=== PATIENT | female | born 1985 ===

== ENCOUNTER 2018-11-01 15:37 | Inpatient (IN) | payer MEDICAID ==
--- NOTE | 2018-11-01 15:42 | Emergency Department Report ---
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 This is a 32-year-old female. The patient is not known to this provider pr eviously. The patient is brought to the hospital by emergency medical services as a possible code stroke. Patient presents to the emergency room today with a complaint of headache, chest pain, and left arm weakness and numbness. The headache is is frontal and bitemporal. It started a few hours ago. It is not sudden or thunderclap in nature. It did not which maximal intensity within an hour. It is not reportedly the most intense headache of her life. It is similar to prior headaches. The chest pain is central and left-sided. Does not rate the back, arms or neck. There is positive nausea and vomiting. There is no diaphoresis. There is no reported exertional shortness of breath. The patient denies DVT, pulmonary embolus risk factors, with the exception of poor baseline mobility. Patient is not sure about when her left arm "weakness" started. It may have started a few days ago, last Thursday. She is not certain. She did state to ER staff that it was present for 4 days, and then resolved. She did not receive any definitive imaging at this time. She also endorses nonspecific facial numbness. Patient not able to describe exacerbating or relieving factors that she is aware of. -: Gradual Location: left face, left arm History of same: Yes Place: home Severity: moderate Quality: other Improves With: other Worsens With: other On Anticoagulants: No Context: other - Related Data Allergies/Adverse Reactions: Allergies Allergy/AdvReac Type Severity Reaction Status Date / Time ciprofloxacin [From Cipro] Allergy Rash Verified 11/01/18 15:40 duloxetine [From Cymbalta] Allergy Rash Verified 11/01/18 15:40 metoclopramide [From Reglan] Allergy Rash Verified 11/01/18 15:40 prochlorperazine Allergy Rash Verified 11/01/18 15:40 [From Compazine] sulfamethoxazole Allergy Rash Verified 11/01/18 15:40 [From Septra] trimethoprim [From Septra] Allergy Rash Verified 11/01/18 15:40 ED Review of Systems ROS: Stated complaint: POSSIBLE STROKE Other details as noted in HPI Constitutional: malaise Eyes: denies: eye discharge ENT: denies: epistaxis Respiratory: denies: cough Cardiovascular: chest pain Gastrointestinal: nausea, vomiting Genitourinary: hematuria (for months) Musculoskeletal: back pain (for months) Skin: denies: rash Neurological: headache, weakness Psychiatric: anxiety ED Neuro Physical Exam - General Limitations: Language Barrier General appearance: alert, anxious, obese Suspected Stroke: No - Head Head exam: Present: atraumatic, normocephalic - Eye Eye exam: Present: normal appearance, EOMI. Absent: nystagmus - ENT ENT exam: Present: normal exam, normal orophraynx, mucous membranes moist, normal external ear exam - Neck Neck exam: Present: normal inspection, full ROM. Absent: tenderness, meningismus - Respiratory Respiratory exam: Present: normal lung sounds bilaterally. Absent: respiratory distress - Cardiovascular Cardiovascular Exam: Present: normal rhythm, tachycardia, normal heart sounds. Absent: systolic murmur, diastolic murmur, rubs, gallop - GI/Abdominal GI/Abdominal exam: Present: soft, normal bowel sounds. Absent: distended, tenderness, guarding, rebound, rigid - Extremities Exam Extremities exam: Present: normal inspection, other (2+ pulses noted in the b ilateral upper extremities. There is no long bony tenderness. Compartments soft. There is no palpable cord.). Absent: tenderness, calf tenderness - Back Exam Back exam: Present: normal inspection, full ROM. Absent: tenderness, CVA tenderness (R), CVA tenderness (L), paraspinal tenderness, vertebral tenderness - Neurological Exam Neurological exam: Present: alert, oriented X3, motor sensory deficit (chest noted in the right lower extremity. Hemiparetic and left lower extremity.), other (there is no facial droop. The tongue is midline. Extraocular movements are intact bilaterally. Patient endorses decreased sensation to light touch left sided V1, V2, V3 distribution. His grossly intact. Phonation is normal and intact.) - NIHSS Assessment Interval: Baseline 1a. Level of Consciousness: alert/keenly responsive 1b. LOC Questions: answers both correctly 1c. LOC Commands: performs tasks correctly 2. Best Gaze: normal 3. Visual: no visual loss 4. Facial Palsy: normal symmetrical movement 5b. Motor Arm Right: no drift 5a. Motor Arm Left: drift 6a. Motor Leg Left: no gravity effort 6b. Motor Leg Right: drift 7. Limb Ataxia: absent 8. Sensory: normal 9. Best Language: no aphasia 10. Dysarthria: normal 11. Extinction/Inattention: no abnormality Total Score: 5 Stroke Severity: Moderate Stroke - Psychiatric Psychiatric exam: Present: anxious - Skin Skin exam: Present: warm, dry, intact, normal color. Absent: rash ED Course Vital Signs 11/01/18 11/01/18 11/01/18 16:00 16:15 16:18 Temperature 98.3 F Pulse Rate 117 H 113 H 117 H Respiratory 12 11 L 13 Rate Blood Pressure 128/86 122/83 128/86 O2 Sat by Pulse 97 96 93 Oximetry 11/01/18 11/01/18 11/01/18 16:30 16:45 17:00 Temperature Pulse Rate 115 H Respiratory 10 L 11 L 10 L Rate Blood Pressure 140/77 130/85 126/91 O2 Sat by Pulse 96 Oximetry 11/01/18 11/01/18 11/01/18 17:15 17:30 17:45 Temperature Pulse Rate 113 H 105 H 110 H Respiratory 18 28 H 13 Rate Blood Pressure 116/97 114/68 115/70 O2 Sat by Pulse 97 Oximetry 11/01/18 11/01/18 11/01/18 18:00 18:15 18:30 Temperature Pulse Rate 101 H 94 H 90 Respiratory 11 L 10 L 10 L Rate Blood Pressure 125/71 97/49 107/49 O2 Sat by Pulse 96 95 94 Oximetry - Reevaluation(s) Reevaluation #1: 11/01/18 17:28 Differential diagnosis, including but not limited to: Transient ischemic attack, subacute stroke, complex migraine, cluster headache, tension headache, GERD, gastritis, pneumonia, pulmonary embolism, radicular pain, conversion disorder, malingering, fibromyalgia Assessment and plan: 32-year-old female with multiple complaints. Complaint #1, acute on chronic headache, with nonspecific associated neurologic symptoms. Patient's last known well time is not explicitly known, as the patient is not able to tells exactly when her last well time's. She did state that a few days ago she had some left-sided facial numbness, and she reported t hat it resolved, she also endorses facial droop which has resolved, and she also endorsed intermittent left-sided arm symptoms. Given that her last known well time is not explicitly known, that she's been experiencing nonspecific neurologic symptoms for greater than 4.5 hours, she is not a TPA candidate. Her exam today does not appear to be consistent with a large vessel occlusion, and consulting stroke neurology does not recommend emergent CT angiogram. We will treat her headache. Please note that IV Benadryl was not given as it will induce euphoria, and oral Benadryl was substituted. Patient treated with intranasal lidocaine, magnesium, and steroids, as she endorses allergic reaction to Reglan. Complaint #2, chest pain, low risk by well's criteria, however tachycardic, poor mobility, d-dimer sent to risk stratify for pulmonary embolus Has a documented history of GERD, gastritis, unlikely to be acute coronary syndrome. Unlikely to be pneumonia based off of x-ray of the chest and physical exam, patient at low risk for major adverse cardiac event as per the heart score risk stratification tool. Complaint #3, reported left arm weakness, patient has good effort with her left arm, and is able to hold it up against gravity. Her bilateral lower extremities are not new or different in their symptoms. Patient has chronic lower extremity weakness secondary to a distant history of traumatic accident. Hospital physician is paged to arrange admission. Reevaluation #2: 11/01/18 17:33 Aortic disease quite unlikely as the patient has equal pulses in the upper, lower extremities, not hypertensive, and x-ray the chest appears to be unremarkable. Reevaluation #3: 11/01/18 18:38 Dr Jose Kraus to admit - Lab Data Result diagrams: 11/01/18 16:16 11/01/18 16:16 Lab Results 11/01/18 11/01/18 11/01/18 Range/Units 16:16 16:16 16:16 WBC 6.0 (4.5-11.0) K/mm3 RBC 5.11 H (3.65-5.03) M/mm3 Hgb 12.6 (10.1-14.3) gm/dl Hct 38.7 (30.3-42.9) % MCV 76 L (79-97) fl MCH 25 L (28-32) pg MCHC 33 (30-34) % RDW 14.9 (13.2-15.2) % Plt Count 316 (140-440) K/mm3 Lymph % (Auto) 19.6 (13.4-35.0) % [place] % (Auto) 4.1 (0.0-7.3) % Eos % (Auto) 0.3 (0.0-4.3) % Baso % (Auto) 0.5 (0.0-1.8) % Lymph # 1.2 (1.2-5.4) K/mm3 [place] # 0.2 (0.0-0.8) K/mm3 Eos # 0.0 (0.0-0.4) K/mm3 Baso # 0.0 (0.0-0.1) K/mm3 Seg Neutrophils % 75.5 H (40.0-70.0) % Seg Neutrophils # 4.5 (1.8-7.7) K/mm3 PT 13.4 (12.2-14.9) Sec. INR 1.05 (0.87-1.13) APTT 23.5 L (24.2-36.6) Sec. Thrombin Time (15.1-19.6) Sec. D-Dimer (0-234) ng/mlDDU Sodium 139 (137-145) mmol/L Potassium 3.7 (3.6-5.0) mmol/L Chloride 101.4 (98-107) mmol/L Carbon Dioxide 23 (22-30) mmol/L Anion Gap 18 mmol/L BUN 11 (7-17) mg/dL Creatinine 0.9 (0.7-1.2) mg/dL Estimated GFR > 60 ml/min BUN/Creatinine Ratio 12 % Glucose 111 H (65-100) mg/dL Calcium 9.2 (8.4-10.2) mg/dL Troponin T < 0.010 (0.00-0.029) ng/mL HCG, Qual (Negative) 11/01/18 11/01/18 11/01/18 Range/Units 16:16 16:16 16:16 WBC (4.5-11.0) K/mm3 RBC (3.65-5.03) M/mm3 Hgb (10.1-14.3) gm/dl Hct (30.3-42.9) % MCV (79-97) fl MCH (28-32) pg MCHC (30-34) % RDW (13.2-15.2) % Plt Count (140-440) K/mm3 Lymph % (Auto) (13.4-35.0) % [place] % (Auto) (0.0-7.3) % Eos % (Auto) (0.0-4.3) % Baso % (Auto) (0.0-1.8) % Lymph # (1.2-5.4) K/mm3 [place] # (0.0-0.8) K/mm3 Eos # (0.0-0.4) K/mm3 Baso # (0.0-0.1) K/mm3 Seg Neutrophils % (40.0-70.0) % Seg Neutrophils # (1.8-7.7) K/mm3 PT (12.2-14.9) Sec. INR (0.87-1.13) APTT (24.2-36.6) Sec. Thrombin Time 16.5 (15.1-19.6) Sec. D-Dimer 211.6 (0-234) ng/mlDDU Sodium (137-145) mmol/L Potassium (3.6-5.0) mmol/L Chloride (98-107) mmol/L Carbon Dioxide (22-30) mmol/L Anion Gap mmol/L BUN (7-17) mg/dL Creatinine (0.7-1.2) mg/dL Estimated GFR ml/min BUN/Creatinine Ratio % Glucose (65-100) mg/dL Calcium (8.4-10.2) mg/dL Troponin T (0.00-0.029) ng/mL HCG, Qual Negative (Negative) - EKG Data -: EKG Interpreted by Id EKG shows normal: sinus rhythm Rate: tachycardia 11/01/18 17:32 Sinus tachycardia, normal axis, QTC prolonged, atrial enlargement, abnormal EKG, unchanged from prior prehospital EKG, this EKG is not consistent with ST elevation myocardial infarction - Radiology Data Radiology results: report reviewed, image reviewed X-ray the chest is negative for acute disease. Noncontrast CT scan of the brain is negative for acute disease. Critical care attestation.: If time is entered above; I have spent that time in minutes in the direct care of this critically ill patient, excluding procedure time. ED Disposition Clinical Impression: Migraine, Chest pain, Left arm weakness Disposition: OP ADMIT IP TO THIS HOSP Is pt being admited?: Yes Does the pt Need Aspirin: Yes Condition: Stable Instructions: Chest Pain (ED) Referrals: FROYLAN BANUELOS MD [Primary Care Provider] - 3-5 Days
--- NOTE | 2018-11-01 16:00 | Cat Scan Report ---
PROCEDURE: CT HEAD/BRAIN WO CON TECHNIQUE: Computerized tomography of the head was performed without contrast material. CT DOSE LENGTH PRODUCT: 1035.5 mGycm HISTORY: neuro deficits <6hrs or sx present upon awakening COMPARISONS: None . FINDINGS: Brain: Brain density appears normal. No evidence of intracranial hemorrhage. No parenchymal hemorr amry ellen, mass lesions or mass effect are seen. No abnormal extra-axial fluid collects or masses are see n. Ventricles: Ventricles are normal size and are midline. Donte septum pellucidum present, normal vari ant. Bone Windows: No evidence of skull fracture. Paranasal sinuses: Nodular density appears be partially visualized inferiorly in left maxillary sinus suggesting a polyp or mucous retention cyst. Paranasal sinuses otherwise appear clear.. Mastoid air cells: Clear. IMPRESSION: Negative unenhanced CT scan of the brain. If further evaluation is clinically indicated MRI may be he lpful. Minimal paranasal sinus disease as described. This document is electronically signed by Hi Henderson MD., November 01 2018 03:58:36 PM ET
[2018-11-01] MEDS ORDERED: MAGNESIUM SULFATE 2GM/50ML 2 GM/50 ML BAG IV ONE (16:05)
[2018-11-01] MEDS ORDERED: XYLOCAINE TOPICAL 4% TP ONE (16:05)
[2018-11-01] MEDS ORDERED: SOLU-Medrol IV ONE (16:05)
[2018-11-01] MEDS ORDERED: TYLENOL PO ONE (16:05)
[2018-11-01] MEDS ORDERED: PEPCID IV ONE (16:06)
--- NOTE | 2018-11-01 16:11 | Emergency Department Report ---
ED Neuro Deficit HPI - General Stated Complaint: POSSIBLE STROKE Time Seen by Provider: 11/01/18 15:41 Source: patient - History of Present Illness Initial Comments: [facility] Date of service: 11/01/2018 Impression: 32 year old female who presented to the hospital with headache, chest pain, and left side weakness and numbness more than usual. Not a tpa candidate due to: Patient has had similar symptoms in the past week so last seen normal is unclear. Does not meet LVO screening criteria (no aphasia, neglect, gaze deviation, dense hemiparesis, or visual field deficits on exam), therefore advanced imaging is not indicated. Comments: Door Time: 15:41 [employer] contacted: 15:42 [employer] at bedside:15:47 NIHSS assessment start time (time the consultation begins): 16:00 Last known well time (LKW): Unknown Recommendations: For headache: Magnesium 1g IV, Benadryl 50 mg PO, and Zofran 4 mg IV Q8H PRN Start antiplatelet if no obvious contraindication Stroke protocol admission/ orderset suggested with placement on stroke floor tele monitoring Bedside swallow evaluation HOB less than 30 degrees IV Fluid hydration with NS Euglycemia avoid hyperthermia, PRN acetaminophen dvt ppx Consider inpatient neurology consultation Discussed with ED MD Please call with questions --------- CC: STroke alert History of Present Illness Patient is a32 year old female with a history of cauda equina syndrome and neurogenic bladder who is wheelchair bound at baseline because of left leg weakness. Patient reports having right leg weakness as well as left facial droop and left face numbness starting last week which lasted approximately 4 days and then started to improve. She did not have any MRI at that time to rule out or rule in stroke. Then today while at her doctor's office she started having severe headache, chest pain and then complained of some weakness and numbness in her left arm and some numbness in her left face. Diagnostic: CT Brain w/o contrast: No acute hemorrhage or large territory infarct Exam: Mental Status: Awake, alert, oriented Naming: Intact Repetition: Intact Speech: fluent Cranial Nerves: Pupils: Equal round and reactive to light Extraocular movements: Intact in all cardinal gaze Ptosis: Absent Visual pitts: Intact to finger counting Facial sensation: Intact to pin and light touch Facial movements: Intact and symmetric Motor Exam: mild drift in her left arm baseline in her legs Tremor/Abnormal Movements: Resting tremor: Absent Intention tremor: Absent Postural tremor: Absent Sensory Exam: Light touch: Decreased on left NIHSS score: 6 -- baseline leg weakness accounts for 4 points. Medical Decision Making: - Extensive number of diagnosis or management options are considered above. - Extensive amount of complex data reviewed. - High risk of complication and/or morbidity or mortality are associated with differential diagnostic considerations above. - There may be Uncertain outcome and increased probability of prolonged functional impairment or high probability of severe prolonged functional impairment associated with some of these differential diagnosis. Medical Data Reviewed: 1.Data reviewed include clinical labs, radiology,Medical Tests; 2.Tests results discussed w/performing or interpreting physician; 3.Obtaining/reviewing old medical records; 4.Obtaining case history from another source; 5.Independent review of image, tracing or specimen. Patient was informed the Neurology Consult would happen via TeleHealth consult by way of interactive audio and video telecommunications and consented to receiving care in this manner. - Related Data Allergies/Adverse Reactions: Allergies Allergy/AdvReac Type Severity Reaction Status Date / Time ciprofloxacin [From Cipro] Allergy Rash Verified 11/01/18 15:40 duloxetine [From Cymbalta] Allergy Rash Verified 11/01/18 15:40 metoclopramide [From Reglan] Allergy Rash Verified 11/01/18 15:40 prochlorperazine Allergy Rash Verified 11/01/18 15:40 [From Compazine] sulfamethoxazole Allergy Rash Verified 11/01/18 15:40 [From Septra] trimethoprim [From Septra] Allergy Rash Verified 11/01/18 15:40 ED Review of Systems ROS: Stated complaint: POSSIBLE STROKE Other details as noted in HPI ED Past Medical Hx - Past Medical History Previous Medical History?: Yes Hx GERD: Yes Hx Arthritis: Yes Additional medical history: cuada equina syndrome. Chronic Pain syndrome. chronic muscle spams. neurogenic bladder. paraplegia. endometrosis. adhesions. herniated disc. PUD. Hernia. LT lef weakness-unable to walk. muscle deficiency - Surgical History Past Surgical History?: Yes Additional Surgical History: hysterectomy. left leg surgery. laminectomy. muscluar stimulator in back. back surgery. ectopic surgery. hernia. ear surgery ED Neuro Physical Exam - General Suspected Stroke: No - NIHSS Assessment Interval: Baseline 1a. Level of Consciousness: alert/keenly responsive 1b. LOC Questions: answers both correctly 1c. LOC Commands: performs tasks correctly 2. Best Gaze: normal 3. Visual: no visual loss 4. Facial Palsy: normal symmetrical movement 5b. Motor Arm Right: no drift 5a. Motor Arm Left: drift 6a. Motor Leg Left: no gravity effort 6b. Motor Leg Right: drift 7. Limb Ataxia: absent 8. Sensory: mild/moderate sensory loss 9. Best Language: no aphasia 10. Dysarthria: normal 11. Extinction/Inattention: no abnormality Total Score: 6 Stroke Severity: Moderate Stroke Critical care attestation.: If time is entered above; I have spent that time in minutes in the direct care of this critically ill patient, excluding procedure time. ED Disposition Clinical Impression: Migraine Disposition: OP ADMIT IP TO THIS HOSP Is pt being admited?: Yes Condition: Stable Referrals: FROYLAN BANUELOS MD [Primary Care Provider] - 3-5 Days
[2018-11-01 16:27] LABS: Basophils % (Auto) 0.5 % (0.0-1.8); Eosinophils % (Auto) 0.3 % (0.0-4.3); Hematocrit 38.7 % (30.3-42.9); Hemoglobin 12.6 gm/dl (10.1-14.3); Lymphocytes # (Auto) 1.2 K/mm3 (1.2-5.4); Lymphocytes % (Auto) 19.6 % (13.4-35.0); Mean Corpuscular HGB Conc 33 % (30-34); Mean Corpuscular Volume 76 fl (79-97); Monocytes # (Auto) 0.2 K/mm3 (0.0-0.8); Monocytes % (Auto) 4.1 % (0.0-7.3); Platelet Count 316 K/mm3 (140-440); Red Blood Count 5.11 M/mm3 (3.65-5.03); Red Cell Distribution Width 14.9 % (13.2-15.2)
[2018-11-01 16:37] LABS: INR 1.05 (0.87-1.13)
[2018-11-01 16:38] LABS: Partial Thromboplastin Time 23.5 Sec. (24.2-36.6)
[2018-11-01] MEDS ORDERED: ZOFRAN ONE (16:41)
[2018-11-01] MEDS ORDERED: BENADRYL ONE (16:42)
[2018-11-01] MEDS ORDERED: BENADRYL PO ONE (16:57)
[2018-11-01 16:58] LABS: BUN/Creatinine Ratio 12; Blood Urea Nitrogen 11 mg/dL (7-17); Calcium 9.2 mg/dL (8.4-10.2); Hemolysis Index 3
[2018-11-01] MEDS ORDERED: BENADRYL IV ONE (16:58)
[2018-11-01] MEDS ORDERED: ZOFRAN IV ONE (16:58)
[2018-11-01] MEDS ORDERED: BANOPHEN PO ONE (16:59)
--- NOTE | 2018-11-01 17:44 | XRay Report ---
PROCEDURE: XR CHEST 1V AP TECHNIQUE: Chest radiograph single view. HISTORY: cp COMPARISONS: None . FINDINGS: Heart: Normal. Mediastinum/Vessels: Normal. Lungs/Pleural space: Normal. Bony thorax: No acute osseous abnormality. Life support devices: None. IMPRESSION: No acute cardiopulmonary abnormality. This document is electronically signed by Andrew Espinoza MD., November 01 2018 05:41:31 PM ET
--- NOTE | 2018-11-01 20:17 | History and Physical Report ---
History of Present Illness Date of examination: 11/01/18 Date of admission: 11/01/18 18:38 History of present illness: Impression: 32 year old female who presented to the hospital with headache, chest pain, and left side weakness and numbness more than usual. Not a tpa candidate due to: Patient has had similar symptoms in the past week so last seen normal is unclear. Does not meet LVO screening criteria (no aphasia, neglect, gaze deviation, dense hemiparesis, or visual field deficits on exam), therefore advanced imaging is not indicated. Comments: Door Time: 15:41 TeleSpecialists contacted: 15:42 TeleSpecialists at bedside:15:47 NIHSS assessment start time (time the consultation begins): 16:00 Last known well time (LKW): Unknown Recommendations: For headache: Magnesium 1g IV, Benadryl 50 mg PO, and Zofran 4 mg IV Q8H PRN Start antiplatelet if no obvious contraindication Stroke protocol admission/ orderset suggested with placement on stroke floor tele monitoring Bedside swallow evaluation HOB less than 30 degrees IV Fluid hydration with NS Euglycemia avoid hyperthermia, PRN acetaminophen dvt ppx Consider inpatient neurology consultation Discussed with ED MD Please call with questions CC: STroke alert History of Present Illness Patient is a32 year old female with a history of cauda equina syndrome and neurogenic bladder who is wheelchair bound at baseline because of left leg weakness. Patient reports having right leg weakness as well as left facial droop and left face numbness starting last week which lasted approximately 4 days and then started to improve. She did not have any MRI at that time to rule out or rule in stroke. Then today while at her doctor's office she started having severe headache, chest pain and then complained of some weakness and numbness in her left arm and some numbness in her left face. Diagnostic: CT Brain w/o contrast: No acute hemorrhage or large territory infarct Exam: Mental Status: Awake, alert, oriented Naming: Intact Repetition: Intact Speech: fluent Cranial Nerves: Pupils: Equal round and reactive to light Extraocular movements: Intact in all cardinal gaze Ptosis: Absent Visual pitts: Intact to finger counting Facial sensation: Intact to pin and light touch Facial movements: Intact and symmetric Motor Exam: mild drift in her left arm baseline in her legs Tremor/Abnormal Movements: Resting tremor: Absent Intention tremor: Absent Postural tremor: Absent Sensory Exam: Light touch: Decreased on left NIHSS score: 6 -- baseline leg weakness accounts for 4 points. Medical Decision Making: - Extensive number of diagnosis or management options are considered above. - Extensive amount of complex data reviewed. - High risk of complication and/or morbidity or mortality are associated with differential diagnostic considerations above. - There may be Uncertain outcome and increased probability of prolonged functional impairment or high probability of severe prolonged functional impairment associated with some of these differential diagnosis. Medical Data Reviewed: 1.Data reviewed include clinical labs, radiology,Medical Tests; 2.Tests results discussed w/performing or interpreting physician; 3.Obtaining/reviewing old medical records; 4.Obtaining case history from another source; 5.Independent review of image, tracing or specimen. Patient was informed the Neurology Consult would happen via TeleHealth consult by way of interactive audio and video telecommunications and consented to receiving care in this manner. - Related Data Allergies/Adverse Reactions: Allergies Allergy/AdvReac Type Severity Reaction Status Date / Time ciprofloxacin [From Cipro] Allergy Rash Verified 11/01/18 15:40 duloxetine [From Cymbalta] Allergy Rash Verified 11/01/18 15:40 metoclopramide [From Reglan] Allergy Rash Verified 11/01/18 15:40 prochlorperazine Allergy Rash Verified 11/01/18 15:40 [From Compazine] sulfamethoxazole Allergy Rash Verified 11/01/18 15:40 [From Septra] trimethoprim [From Septra] Allergy Rash Verified 11/01/18 15:40 Medications and Allergies Allergies Allergy/AdvReac Type Severity Reaction Status Date / Time ciprofloxacin [From Cipro] Allergy Rash Verified 11/01/18 15:40 duloxetine [From Cymbalta] Allergy Rash Verified 11/01/18 15:40 metoclopramide [From Reglan] Allergy Rash Verified 11/01/18 15:40 prochlorperazine Allergy Rash Verified 11/01/18 15:40 [From Compazine] sulfamethoxazole Allergy Rash Verified 11/01/18 15:40 [From ] trimethoprim [From ] Allergy Rash Verified 11/01/18 15:40 Home Medications Medication Instructions Recorded Confirmed Last Taken Type No Known Home Medications [No 11/01/18 11/01/18 Unknown History Reported Home Medications] Exam - Constitutional Vitals: Temp Pulse Resp BP Pulse Ox 98.3 F 81 11 L 99/53 96 11/01/18 16:18 11/01/18 19:51 11/01/18 19:51 11/01/18 19:51 11/01/18 19:51 Results - Labs CBC & Chem 7: 11/01/18 16:16 11/01/18 16:16 Labs: Laboratory Last Values WBC 6.0 K/mm3 (4.5-11.0) 11/01/18 16:16 RBC 5.11 M/mm3 (3.65-5.03) H 11/01/18 16:16 Hgb 12.6 gm/dl (10.1-14.3) 11/01/18 16:16 Hct 38.7 % (30.3-42.9) 11/01/18 16:16 MCV 76 fl (79-97) L 11/01/18 16:16 MCH 25 pg (28-32) L 11/01/18 16:16 MCHC 33 % (30-34) 11/01/18 16:16 RDW 14.9 % (13.2-15.2) 11/01/18 16:16 Plt Count 316 K/mm3 (140-440) 11/01/18 16:16 Lymph % (Auto) 19.6 % (13.4-35.0) 11/01/18 16:16 [place] % (Auto) 4.1 % (0.0-7.3) 11/01/18 16:16 Eos % (Auto) 0.3 % (0.0-4.3) 11/01/18 16:16 Baso % (Auto) 0.5 % (0.0-1.8) 11/01/18 16:16 Lymph # 1.2 K/mm3 (1.2-5.4) 11/01/18 16:16 [place] # 0.2 K/mm3 (0.0-0.8) 11/01/18 16:16 Eos # 0.0 K/mm3 (0.0-0.4) 11/01/18 16:16 Baso # 0.0 K/mm3 (0.0-0.1) 11/01/18 16:16 Seg Neutrophils % 75.5 % (40.0-70.0) H 11/01/18 16:16 Seg Neutrophils # 4.5 K/mm3 (1.8-7.7) 11/01/18 16:16 PT 13.4 Sec. (12.2-14.9) 11/01/18 16:16 INR 1.05 (0.87-1.13) 11/01/18 16:16 APTT 23.5 Sec. (24.2-36.6) L 11/01/18 16:16 16.5 Sec. (15.1-19.6) 11/01/18 16:16 211.6 ng/mlDDU (0-234) 11/01/18 16:16 Sodium 139 mmol/L (137-145) 11/01/18 16:16 Potassium 3.7 mmol/L (3.6-5.0) 11/01/18 16:16 Chloride 101.4 mmol/L (98-107) 11/01/18 16:16 Carbon Dioxide 23 mmol/L (22-30) 11/01/18 16:16 18 mmol/L 11/01/18 16:16 BUN 11 mg/dL (7-17) 11/01/18 16:16 0.9 mg/dL (0.7-1.2) 11/01/18 16:16 Estimated GFR > 60 ml/min 11/01/18 16:16 12 % 11/01/18 16:16 Glucose 111 mg/dL (65-100) H 11/01/18 16:16 Calcium 9.2 mg/dL (8.4-10.2) 11/01/18 16:16 < 0.010 ng/mL (0.00-0.029) 11/01/18 16:16 HCG, Qual Negative (Negative) 11/01/18 16:16
[2018-11-01] MEDS ORDERED: TYLENOL PO PRN ×2 (20:19→20:20)
[2018-11-01] MEDS ORDERED: SODIUM CHLORIDE FLUSH SYRINGE 10 ML IV PRN ×3 (20:19→20:24)
[2018-11-01] MEDS ORDERED: IBUPROFEN PO PRN (20:20)
[2018-11-01] MEDS ORDERED: ZOFRAN IV PRN (20:20)
[2018-11-01] MEDS ORDERED: NACL 0.9% 1000 ML 1,000 ML IV SCH (21:00)
[2018-11-01] MEDS ORDERED: SODIUM CHLORIDE FLUSH SYRINGE 10 ML IV SCH (22:00)
[2018-11-01] MEDS: SODIUM CHLORIDE FLUSH SYRINGE 10 ML IV SCH (22:58)
[2018-11-01] MEDS: PEPCID IV SCH (22:58)
[2018-11-02] MEDS: MORPHINE IV PRN ×3 (03:29→14:28)
[2018-11-02] MEDS: ZOFRAN IV PRN (03:29)
[2018-11-02] MEDS ORDERED: NORCO 5/325 PO ONE (06:00)
--- NOTE | 2018-11-02 07:27 | Event Note ---
Date: 11/01/18 See H/p in reports TIA
--- NOTE | 2018-11-02 07:28 | Progress Note ---
Assessment and Plan A/p 1. Common migraine, intractable 2. Cauda equina syndrome (old) 3. Left side weakness (appears functional) 4. Chest pain --Sec to Gerd Treat Migraine Increase Topamax to 75 mg pm dosw Firicet 1 qid prn Sumatriptan 50 mg qd prn #9 L side weakness functional PPI.s at discharge Subjective Date of service: 11/02/18 Principal diagnosis: Severe Headache and Chest pain and L side weakness intermittent in nature Interval history: Patient presents to the emergency room t with a complaint of headache, chest pain, and left arm weakness and numbness. The headache is is frontal and bitemporal. It started a few hours ago. It is not reportedly the most intense headache of her life. It is similar to prior headaches. The chest pain is central and left-sided. Does not rate the back, arms or neck. There is positive nausea and vomiting. There is no diaphoresis. There is no reported exertional shortness of breath. The patient denies DVT, pulmonary embolus risk factors, with the exception of poor baseline mobility. Patient is not sure about when her left arm "weakness" started. It may have started a few days ago, last Thursday. She is not certain. She did state to ER staff that it was present for 4 days, and then resolved. She did not receive any definitive imaging at this time. She also endorses nonspecific facial numbness. Patient not able to describe exacerbating or relieving factors that she is aware of. Objective - Constitutional Vitals: Vital Signs - 12hr 11/01/18 11/01/18 11/01/18 19:30 19:41 19:51 Temperature Pulse Rate 81 81 81 Pulse Rate [ Apical] Respiratory 9 L 10 L 11 L Rate Respiratory Rate [Head] Blood Pressure 98/54 112/61 99/53 Blood Pressure [Right] O2 Sat by Pulse 95 96 96 Oximetry 11/01/18 11/01/18 11/01/18 20:16 20:43 21:20 Temperature 98.5 F Pulse Rate 92 H 90 Pulse Rate [ Apical] Respiratory 18 Rate Respiratory Rate [Head] Blood Pressure 116/69 99/53 Blood Pressure [Right] O2 Sat by Pulse 99 87 Oximetry 11/01/18 11/01/18 11/01/18 22:30 22:57 23:00 Temperature Pulse Rate Pulse Rate [ 90 Apical] Respiratory 18 18 Rate Respiratory 18 Rate [Head] Blood Pressure Blood Pressure [Right] O2 Sat by Pulse 100 Oximetry 11/01/18 11/01/18 11/02/18 23:23 23:57 03:21 Temperature 98.0 F 98.0 F Pulse Rate 97 H 110 H Pulse Rate [ Apical] Respiratory 18 18 20 Rate Respiratory Rate [Head] Blood Pressure 118/74 124/80 Blood Pressure [Right] O2 Sat by Pulse 97 97 Oximetry 11/02/18 11/02/18 11/02/18 03:29 03:59 05:21 Temperature Pulse Rate 92 H Pulse Rate [ Apical] Respiratory 20 16 18 Rate Respiratory Rate [Head] Blood Pressure Blood Pressure 118/70 [Right] O2 Sat by Pulse 100 Oximetry 11/02/18 06:24 Temperature Pulse Rate Pulse Rate [ Apical] Respiratory 20 Rate Respiratory Rate [Head] Blood Pressure Blood Pressure [Right] O2 Sat by Pulse Oximetry General appearance: Present: no acute distress, well-nourished - EENT Eyes: PERRL, EOM intact ENT: hearing intact, clear oral mucosa Ears: bilateral: normal - Neck Neck: supple, normal ROM - Respiratory Respiratory effort: normal Respiratory: bilateral: CTA - Breasts Breasts: normal - Cardiovascular Heart rate: 78 Rhythm: regular Heart Sounds: Present: S1 & S2. Absent: gallop, rub Extremities: pulses intact, No edema, normal color, Full ROM - Gastrointestinal General gastrointestinal: Present: soft, non-tender, non-distended, normal bowel sounds - Genitourinary Female genitourinary: normal - Integumentary Integumentary: clear, warm, dry - Musculoskeletal Musculoskeletal: 1, strength equal bilaterally - Neurologic Neurologic: moves all extremities, other (Occasionally L side weakness but no weakness when she thinks that no one is observing ) - Psychiatric Psychiatric: memory intact, appropriate mood/affect, intact judgment & insight - Labs CBC & Chem 7: 11/02/18 08:37 11/02/18 08:37 Labs: Abnormal lab results 11/01/18 11/01/18 11/01/18 Range/Units 16:16 16:16 16:16 RBC 5.11 H (3.65-5.03) M/mm3 MCV 76 L (79-97) fl MCH 25 L (28-32) pg Seg Neutrophils % 75.5 H (40.0-70.0) % APTT 23.5 L (24.2-36.6) Sec. Glucose 111 H (65-100) mg/dL
[2018-11-02 08:56] LABS: Basophils % (Auto) 0.1 % (0.0-1.8); Hematocrit 37.4 % (30.3-42.9); Hemoglobin 12.1 gm/dl (10.1-14.3); Lymphocytes # (Auto) 0.9 K/mm3 (1.2-5.4); Lymphocytes % (Auto) 15.7 % (13.4-35.0); Mean Corpuscular HGB Conc 32 % (30-34); Mean Corpuscular Volume 76 fl (79-97); Monocytes # (Auto) 0.2 K/mm3 (0.0-0.8); Monocytes % (Auto) 4.3 % (0.0-7.3); Platelet Count 307 K/mm3 (140-440); Red Blood Count 4.91 M/mm3 (3.65-5.03)
[2018-11-02] MEDS: PEPCID IV SCH ×2 (10:58→21:49)
[2018-11-02] MEDS: SODIUM CHLORIDE FLUSH SYRINGE 10 ML IV SCH ×2 (11:03→21:50)
--- NOTE | 2018-11-02 11:38 | History and Physical Report ---
CHIEF COMPLAINT: Left arm weakness and numbness. HISTORY OF PRESENT ILLNESS: A 32-year-old female with history of spina bifida and near paraplegia, comes in for left arm weakness and numbness. Also headache, which is bitemporal and frontal, started few hours ago. Headache is about 8 on a scale of 1-10. Also chest pain, which is central and left sided. Associated with nausea and vomiting. No diaphoresis. No exertional shortness of breath. No recent travel. The patient is not sure when the left arm weakness started. She stated it may have started on Thursday, which is one week ago. Today is Thursday. Apparently, left arm weakness was present for 4 days and resolved. No significant imaging was done at that time. PAST MEDICAL HISTORY: Significant for spina bifida. PREVIOUS SURGICAL HISTORY: Unavailable. FAMILY HISTORY: Hypertension. SOCIAL HISTORY: Lives with family. REVIEW OF SYSTEMS: Significant for both lower extremity weakness. Also, left arm weakness, which is 4/5. A 14-point review of systems done. PHYSICAL EXAMINATION: GENERAL: Young female, cooperative during examination. VITAL SIGNS: Blood pressure is 118/70, temperature is 98, pulse is 92, respirations are 16, sats 100%. HEENT: Unremarkable. Pupils equal and reactive. NECK: Supple, no lymphadenopathy, no thyromegaly. LUNGS: Clear to auscultation and percussion. Good air entry. CARDIOVASCULAR: S1, S2 heard. No gallop, no murmur, no rub. Apical impulse in left fifth intercostal space and midclavicular line. ABDOMEN: Soft and benign. No hepatosplenomegaly. No guarding, no rigidity. Hernial orifices are normal. EXTREMITIES: Good pedal pulses. No pedal edema. CENTRAL NERVOUS SYSTEM: Alert and oriented x 4. Left arm weakness present. Both the lower extremity weakness present. SKIN: Normal. LABORATORY DATA: Significant for white count of 6000, H and H of 12.6 and 38.7, MCV of 76, MCH of 25. Electrolytes are normal. CTA head was no acute findings. Negative unenhanced CT scan of the brain. Chest x-ray, no acute findings. ASSESSMENT AND PLAN: 1. Transient ischemic attack versus cerebrovascular accident. Stroke workup. MRI/MRA and carotid duplex scan and echocardiogram ordered. Neurology consult ordered. 2. Iron deficiency anemia. Iron started. 3. Spina bifida. Supportive care. 4. Deep venous thrombosis prophylaxis. Lovenox 40 mg subcutaneous daily and gastrointestinal prophylaxis. JOB# [id number] SHELIA/STEVO MEMBRENOD
[2018-11-02 14:40] LABS: Alanine Aminotransferase 15 units/L (7-56); Albumin 3.8 g/dL (3.9-5); BUN/Creatinine Ratio 16; Blood Urea Nitrogen 11 mg/dL (7-17); Calcium 9.6 mg/dL (8.4-10.2); Hemolysis Index 1
[2018-11-02] MEDS ORDERED: TORADOL IV STA (15:20)
[2018-11-02] MEDS ORDERED: DepaCON 1,000 MG in NACL 0.9% 100 ML IV STA (16:51)
[2018-11-02] MEDS ORDERED: VASELINE LIP THERAPY TP PRN (16:57)
[2018-11-02] MEDS: NACL 0.9% IV PRN ×3 (17:23→21:50)
[2018-11-02] MEDS: NEURONTIN PO SCH ×2 (17:23→20:48)
[2018-11-02] MEDS: THORAZINE IV PRN ×3 (17:23→21:50)
[2018-11-02 20:09] LABS: HDL Cholesterol 38 mg/dL (40-59); LDL Cholesterol,Direct 182 mg/dL (50-130)
--- NOTE | 2018-11-02 20:30 | Consultation ---
History of Present Illness Consult date: 11/02/18 Requesting physician: JOHANA RICO Reason for Consult: weakness left side Chief complaint: weak left side, headache History of present illness: This 32-year-old right-handed female says she's had sharp headache that becomes dull and then sharp again in the bifrontal region radiating occipitally since Thursday, October 25. EMS was called but no transport ever obtained. She was told at her clinic after noticing a left-sided facial droop that she should go to the ER that she did not go. By the next she had improvement of the left facial drooping though she still thinks her lip is a little asymmetric. She thinks her smile is not quite right. She had some pain in her teeth as well. On October 25 she had some numbness of the left hand along with chest pain radiating down the left arm that felt like a muscle spasm. Yesterday she had lightheadedness and tired feeling all that day and problems messing up words. She also had some nausea. She went to the clinic and was told her eyes were "weird" and that she looked "sick". She has worsening of loss of sensation in the left leg and some weakness in the leg and arm with some jerking of the arm and leg yesterday as well leading to admission. Her left leg still feels a bit heavy but is improved. She has some weakness of the left arm to the shoulder and fingers jerking on the left. She says she's actually had no sensation in the left leg since the 2013 cauda equina injury when a horse fell on her. She had loss of bladder control from this injury and has to self catheterize. She had a spinal cord stimulator implanted in 2016 but says the leads fell downwards (though it had worked well for 3 months) and now doesn't work and she can't get Medicaid to approve surgery to correct the fallen leads and wants [employer], the maker of the neurostimulator to send a letter to Medicaid saying she needs the surgery. Headache improved some with lying down but says 2 mg of morphine is no longer helping. She was on medication called [employer], in [place] that supposedly was a mixture of morphine and some other medication she had no migraines for 5 years up until this recurrence October 25. Past medical history: Medical illnesses: Hypertension migraines in the past, right sciatica, neck disc bulging, chronic pain in joints and back and neck, low phosphate, low magnesium, hypoglycemia. Says she takes an antibiotic routinely apparently to prevent bladder infections. Medications: Says she takes diclofenac 50 mg 3 times a day, Zantac, baclofen 20 mg 3 times a day, gabapentin 800 mg 3 times a day. Says only hydromorphone was helping when at [facility] in the past. Surgeries: Says she's had 16 surgeries including hysterectomy and later removal of both ovaries, ear surgeries to restore hearing, lumbar laminectomy 2014 which was incomplete because they had to stop due to low hemoglobin and was told she n eeded further surgery, neurostimulator 2015 Social history: No tobacco alcohol or illicit drugs, unable to work due to her spine condition apparently, with 2 children. Family history: Stroke in maternal grandmother, no aneurysms except that she claims she has 1 doesn't know the location, no epilepsy, hypertension and sister, diabetes in both parents, paternal grandfather, paternal grandmother. Review of systems: Headaches as noted, had a blood patch successfully in 2019 at [facility]. Some lightheadedness at times. Having bad lower back pain currently. Snoring and has been told she stops breathing by her children, not sleepy driving. Hard to remember day-to-day things recently since this October 25 illness. Gen. appearance: Well-developed but moderately obese (per BMI) early 30s female holding her head in pain, tearful at times. HEENT: Atraumatic normocephalic no bruits, superficial temporal artery pulses are 2+ without soreness, no temporomandibular joint clicking or soreness or sinus soreness to palpation or percussion. Neck: Supple no bruits. Heart: No murmur or extra sounds. Extremities: 2+ dorsalis pedis pulses, no clubbing cyanosis or edema. Neurologic exam: Mental status: Awake alert oriented 3, speech is clear,but not manager social services, gets 2 of 3 objects at 3 minutes. Spells world backwards correctly in Ethiopian, abstracts well, no right-left confusion, names pencil in Martiniquais and its point in Ethiopian. Cranial nerves: Oh are full, no papilledema, spontaneous venous pulsations are present, PERRLA, EOMs full without nystagmus or diplopia, no light touch or pinprick on the left, decreased left facial motion and decreased wrinkle left forehead with an associated scar horizontal above the eyebrow, Banks's to the right with AC>BC bilaterally, gag not attempted due to nausea but palate rises symmetrically to phonation, shoulder shrug is intact, tongue protrudes midline. Cerebellar: Finger to nose intact on the right, cannot reach all the way on the left though no associated tremor, [id number] intact on the right, cannot attempt on the left due to weakness. Sensory exam: Light touch and pinprick and vibrations absent on the left. Motor exam upper extremities: Lives right arm well and aix administrator is 5 with normal rapid alternating movements. Manager [employer] on the left is 2+ and jerky, lives at about 6 inches off the bed and hold it up briefly at the elbow. Motor exam lower extremities: Plegic left leg though later seems to wiggle in the bed when she wiggles her right leg more vigorously in response to pain. Lifts legs on the right well off the bed with strength 5. No attempt to push down on the right while trying to lift on the left (Cardozo's test therefore positive) though she actually seems to try to lift the right one at the same time as she is supposed to be lifting the left one despite telling her not to. Deep tendon reflexes: Palmomental, snout and jaw jerk are negative. Triceps, biceps and brachioradialis are trace bilaterally. Knee jerks are 1 bilaterally, ankle jerks are 0 on the right remaining 0 with reinforcement and 1 on the left without clonus. Toes are bilaterally downgoing to Babinski testing. Medications and Allergies Allergies Allergy/AdvReac Type Severity Reaction Status Date / Time ciprofloxacin [From Cipro] Allergy Rash Verified 11/01/18 15:40 duloxetine [From Cymbalta] Allergy Rash Verified 11/01/18 15:40 metoclopramide [From Reglan] Allergy Rash Verified 11/01/18 15:40 prochlorperazine Allergy Rash Verified 11/01/18 15:40 [From Compazine] sulfamethoxazole Allergy Rash Verified 11/01/18 15:40 [From Septra] trimethoprim [From Septra] Allergy Rash Verified 11/01/18 15:40 Home Medications Medication Instructions Recorded Confirmed Last Taken Type No Known Home Medications [No 11/01/18 11/01/18 Unknown History Reported Home Medications] Active Meds: Active Medications Acetaminophen (Tylenol) 650 mg PO Q4H PRN PRN Reason: Pain MILD(1-3)/Fever >100.5/JONES Atorvastatin Calcium (Lipitor) 40 mg PO QHS [facility] Last Admin: 11/01/18 22:57 Dose: 40 mg Documented by: Baclofen (Lioresal) 20 mg PO TID [facility] Diclofenac Sodium (Voltaren) 50 mg PO TID [facility] Famotidine (Pepcid) 20 mg IV BID [facility] Last Admin: 11/02/18 10:58 Dose: 20 mg Documented by: Gabapentin (Neurontin) 800 mg PO TID [facility] Last Admin: 11/02/18 17:23 Dose: 800 mg Documented by: Hydromorphone HCl (Dilaudid) 0.5 mg IV Q4H PRN PRN Reason: Pain , Severe (7-10) Hydrophilic Ointment (Vaseline Lip Therapy) 1 applic TP DIRECT PRN PRN Reason: Dry Lips Chlorpromazine HCl 12.5 mg/ (Sodium Chloride) 50.5 mls @ 100 mls/hr IV Q20MIN PRN PRN Reason: Headache Last Admin: 11/02/18 17:23 Dose: 100 mls/hr Documented by: Morphine Sulfate (Morphine) 2 mg IV Q4H PRN PRN Reason: Pain, Moderate (4-6) Last Admin: 11/02/18 14:28 Dose: 2 mg Documented by: Ondansetron HCl (Zofran) 4 mg IV Q8H PRN PRN Reason: Nausea And Vomiting Last Admin: 11/02/18 03:29 Dose: 4 mg Documented by: Sodium Chloride (Sodium Chloride Flush Syringe 10 Ml) 10 ml IV BID [facility] Last Admin: 11/02/18 11:03 Dose: 10 ml Documented by: Sodium Chloride (Sodium Chloride Flush Syringe 10 Ml) 10 ml IV PRN PRN PRN Reason: LINE FLUSH Trazodone HCl (Desyrel) 100 mg PO QHS [facility] Physical Examination - Vital Signs Vital Signs: Vital Signs Pulse Resp BP Pulse Ox 117 H 12 128/86 97 11/01/18 16:00 11/01/18 16:00 11/01/18 16:00 11/01/18 16:00 Results - Laboratory Findings CBC and BMP: 11/02/18 08:37 11/02/18 08:37 Abnormal Lab Findings: Abnormal Labs 11/01/18 11/01/18 11/01/18 16:16 16:16 16:16 RBC 5.11 H MCV 76 L MCH 25 L Lymph # Seg Neutrophils % 75.5 H APTT 23.5 L Glucose 111 H Albumin Cholesterol LDL Cholesterol Direct HDL Cholesterol 11/02/18 11/02/18 08:37 08:37 RBC MCV 76 L MCH 25 L Lymph # 0.9 L Seg Neutrophils % 79.9 H APTT Glucose 111 H Albumin 3.8 L Cholesterol 228 H LDL Cholesterol Direct 182 H HDL Cholesterol 38 L Assessment and Plan Impression: 1. Common migraine, intractable 2. Cauda equina syndrome (old) 3. Left side weakness (appears functional) Plan: 1. This report should be sent to Dr. Reagan Ceron, her PCP. Per [employer] cardiac monitor technician who called me back, after reviewing her ID and serial number and model #, she cannot have MRI scans. He needs to request from [employer] at their Patient Care # [phone] a letter from them stating she needs surgery to correct the neurostimulator electrodes that have fallen out of place. Her ID is [id number], Serial # is [id number], IPG model is [id number]-1132. Surgeon apparently or Pain DrElvin who placed it in [place] was Luke Wilder MD at [phone]. 2. I have suggested she lie down in case she is experiencing a low CSF pressure headache but after a while of doing so she preferred to sit back up. 3. I ordered Toradol injection while I was seeing her and later ordered Depacon to be followed by her accompanied by Genie intravenously as 3 doses 20 minutes apart while monitoring blood pressure, and Depacon single IV dose. 4. I will order trazodone for sleep since she asked for a medication for sleep. She might benefit from further doses of magnesium for her headache. 5. May need PT to help her "recover" from the left side weakness. 6. Not likely hemiplegic migraine with no prior history of such. Would not then have the positive Cardozo's test. 120 minutes spent which includes 50 minute prolonged [id number] time beyond the initial 70 min history and examination lengthened by her hyperverbal responses and need to use an dance entertainer. Thank you for an interesting consultation on this unfortunate early 30s lady. Will sign off, call for any questions.
[2018-11-02] MEDS: VOLTAREN PO SCH (20:47)
[2018-11-02] MEDS: LIORESAL PO SCH (20:47)
[2018-11-02] MEDS: DILAUDID IV PRN (20:50)
[2018-11-02] MEDS ORDERED: DESYREL PO SCH (22:00)
[2018-11-03] MEDS: DILAUDID IV PRN ×4 (02:46→15:10)
[2018-11-03] MEDS: VOLTAREN PO SCH ×2 (08:00→13:50)
[2018-11-03] MEDS: ZOFRAN IV PRN (08:28)
[2018-11-03] MEDS: LIORESAL PO SCH ×2 (08:32→13:50)
[2018-11-03] MEDS: NEURONTIN PO SCH ×2 (08:32→13:51)
[2018-11-03] MEDS ORDERED: PEPCID PO SCH (10:00)
[2018-11-03] MEDS: SODIUM CHLORIDE FLUSH SYRINGE 10 ML IV SCH (10:32)
--- NOTE | 2018-11-03 15:30 | Discharge Summary ---
Providers - Providers Date of Admission: 11/01/18 18:38 Date of discharge: 11/03/18 Attending physician: JOHANA RICO 11/01/18 15:41 Consult to Physician [CONS] Urgent Comment: Consulting Provider: SKYLAR PRINGLE Physician Instructions: Reason For Exam: left arm weakness 11/01/18 20:20 Consult to Physician [CONS] Routine Comment: Consulting Provider: LAZARA DAVISON Physician Instructions: Reason For Exam: CVA/TIA 11/01/18 20:25 Occupational Therapy Evaluate and Treat [CONS] Routine Comment: Reason For Exam: Neuro deficits Physical Therapy Evaluation and Treat [CONS] Routine Comment: Reason For Exam: Neuro deficits [facility] Condition: Stable Hospital course: 1. Common migraine, intractable 2. Cauda equina syndrome (old) 3. Left side weakness (appears functional) From Dr Davison who has spent lot of time and research on this patient "Plan: 1. This report should be sent to Dr. Lynne Ceron, her PCP. Per [employer] master fire control technician who called me back, after reviewing her ID and serial number and model #, she cannot have MRI scans. He needs to request from [employer] at their Patient Care # [phone] a letter from them stating she needs surgery to correct the neurostimulator electrodes that have fallen out of place. Her ID is [id number], Serial # is [id number], IPG model is [id number]. Surgeon apparently or Pain Dr. who placed it in [place] was Luke Wilder MD at [phone]. 2. I have suggested she lie down in case she is experiencing a low CSF pressure headache but after a while of doing so she preferred to sit back up. 3. I ordered Toradol injection while I was seeing her and later ordered Depacon to be followed by her accompanied by Genie intravenously as 3 doses 20 minutes apart while monitoring blood pressure, and Depacon single IV dose. 4. I will order trazodone for sleep since she asked for a medication for sleep. She might benefit from further doses of magnesium for her headache. 5. May need PT to help her "recover" from the left side weakness. 6. Not likely hemiplegic migraine with no prior history of such. Would not then have the positive Cardozo's test." Treat Migraine Increase Topamax to 75 mg pm po qhs Fioricet 1 qid prn Sumatriptan 50 mg qd prn #9 L side weakness functional PPIs at discharge Disposition: [place] TO HOME OR SELFCARE Core Measure Documentation - Palliative Care Palliative Care/ Comfort Measures: Not Applicable - Core Measures Any of the following diagnoses?: none Exam - Constitutional Vitals: Temp Pulse Resp BP Pulse Ox 98.4 F 90 16 112/63 96 11/03/18 09:06 11/03/18 10:00 11/03/18 09:06 11/03/18 09:06 11/03/18 11:57 General appearance: Present: no acute distress, well-nourished - EENT Eyes: Present: PERRL ENT: hearing intact, clear oral mucosa - Neck Neck: Present: supple, normal ROM - Respiratory Respiratory effort: normal Respiratory: bilateral: CTA - Cardiovascular Heart rate: 78 Rhythm: regular Heart Sounds: Present: S1 & S2. Absent: rub, click - Extremities Extremities: no ischemia, pulses intact, pulses symmetrical, No edema Peripheral Pulses: within normal limits - Abdominal General gastrointestinal: Present: soft, non-tender, non-distended, normal bowel sounds Female genitourinary: Present: normal - Integumentary Integumentary: Present: clear, warm, dry - Musculoskeletal Musculoskeletal: gait normal, strength equal bilaterally - Psychiatric Psychiatric: appropriate mood/affect, intact judgment & insight - Neurologic Neurologic: CNII-XII intact, moves all extremities - Allied Health Allied health notes reviewed: nursing, case management Plan Activity: no restrictions Diet: low fat, low cholesterol, low salt Follow up with: FROYLAN BANUELOS MD [Primary Care Provider] - 3-5 Days LYNNE CERON MD [Staff Physician] - 7 Days
[2018-11-03 15:59] VITALS: BP 105/60
--- NOTE | 2018-11-04 08:28 | Vascular Lab Report ---
PROCEDURE: VL CAROTID DUPLEX BILAT TECHNIQUE: Carotid duplex Doppler ultrasound. Grayscale, color flow and spectral waveform images wer e obtained. HISTORY: stroke COMPARISON: None FINDINGS: There is no significant plaque seen. There is no abnormal elevation in flow velocity. ICA/CCA ratios are normal. This is a normal study corresponding to stenoses of 1-15 %. IMPRESSION: Normal study. No evidence of any hemodynamically significant stenosis This document is electronically signed by Shu Cavanaugh MD., November 04 2018 08:26:49 AM ET
== END 2018-11-03 17:06 | disposition home or self-care (01) | DRG 392 ==
LOC: ED 15:37 → 4A 18:38
PROVIDERS: ADMIT Internal Medicine; ATTEND Internal Medicine
DX: K21.9 Gastro-esophageal reflux disease without esophagitis (principal); G43.019 Migraine without aura, intractable, without status migrainosus; R29.898 Other symptoms and signs involving the musculoskeletal system; Z82.49 Family history of ischemic heart disease and other diseases of the circulatory system; D50.9 Iron deficiency anemia, unspecified; E66.9 Obesity, unspecified; E78.5 Hyperlipidemia, unspecified; G89.29 Other chronic pain; M54.9 Dorsalgia, unspecified; I10 Essential (primary) hypertension; M54.31 Sciatica, right side; Z90.710 Acquired absence of both cervix and uterus; Z82.3 Family history of stroke; Z83.3 Family history of diabetes mellitus; Z99.3 Dependence on wheelchair; Z68.41 Body mass index [BMI] 40.0-44.9, adult; Z88.1 Allergy status to other antibiotic agents; Z88.8 Allergy status to other drugs, medicaments and biological substances; Z98.1 Arthrodesis status; Z87.11 Personal history of peptic ulcer disease
CPT/HCPCS: 36415; 70450; 71045; 80048; 80053; 80061; 83036; 84484; 84703; 85025; 85379; 85610; 85670; 85730; 93005; 93010; 93306; 93880; 94760; G0378; A9270-GY; J1170; J1200; J1885; J2270; J2405; J2930; J3230; J3475; J7030

== ENCOUNTER 2020-12-12 13:38 | Emergency (ER) | payer MEDICAID ==
--- NOTE | 2020-12-12 16:32 | Event Note ---
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 This was done by a Dr. Josette Escobedo. Patient states that this procedure was done about 2 weeks ago. She states since then she has been having significant right-sided abdominal pain, nausea, vomiting, chest pain and constipation. She also reports that she had a fever of 101. She states that she had a surgery done and while the [facility]. She states that she try to follow-up with the surgeon who did the procedure but surgeon is currently on vacation. This initial assessment/diagnostic orders/clinical plan/treatment(s) is/are subject to change based on patients health status, clinical progression and re- assessment by fellow clinical providers in the ED. Further treatment and workup at subsequent clinical providers discretion. Patient/guardian urged not to elope from the ED as their condition may be serious if not clinically assessed and managed. Initial orders include: Abdominal order set including chest x-ray
[2020-12-12 17:12] LABS: Alanine Aminotransferase 13 units/L (7-56); Albumin 4.4 g/dL (3.9-5); Blood Urea Nitrogen 14 mg/dL (7-17); Calcium 9.8 mg/dL (8.4-10.2); Hemolysis Index 34
[2020-12-12 17:13] LABS: BUN/Creatinine Ratio 23; Bilirubin,Direct < 0.2 mg/dL (0-0.2)
--- NOTE | 2020-12-12 17:35 | XRay Report ---
. CHEST 2 VIEWS INDICATION / CLINICAL INFORMATION: Chest pain. COMPARISON: None available. FINDINGS: SUPPORT DEVICES: None. HEART / MEDIASTINUM: No significant abnormality. LUNGS / PLEURA: No significant pulmonary or pleural abnormality. No pneumothorax. ADDITIONAL FINDINGS: No significant additional findings. IMPRESSION: 1. No acute findings. Signer Name: Matheus Schilling MD Signed: 12/12/2020 5:30 PM Workstation Name: [id number]
[2020-12-12 18:04] LABS: Basophils # (Auto) 0.1 K/mm3 (0.0-0.1); Eosinophils # (Auto) 0.1 K/mm3 (0.0-0.4); Eosinophils % (Auto) 1.9 % (0.0-4.3); Hematocrit 41.3 % (30.3-42.9); Hemoglobin 13.4 gm/dl (10.1-14.3); Lymphocytes # (Auto) 2.3 K/mm3 (1.2-5.4); Lymphocytes % (Auto) 42.5 % (13.4-35.0); Mean Corpuscular HGB Conc 32 % (30-34); Mean Corpuscular Volume 81 fl (79-97); Monocytes # (Auto) 0.4 K/mm3 (0.0-0.8); Monocytes % (Auto) 8.2 % (0.0-7.3); Platelet Count 345 K/mm3 (140-440); Red Blood Count 5.07 M/mm3 (3.65-5.03)
[2020-12-12] MEDS ORDERED: ONDANSETRON 4 MG/2 ML INJ IV ONE ×2 (18:55→21:45)
[2020-12-12] MEDS ORDERED: MORPHINE 4 MG/1 ML INJ IV ONE ×2 (18:55→21:45)
[2020-12-12] MEDS ORDERED: SODIUM CHLORIDE 0.9% 1000 ML 1,000 ML IV ONE (18:55)
--- NOTE | 2020-12-12 21:12 | Cat Scan Report ---
CT ABDOMEN AND PELVIS WITH CONTRAST INDICATION / CLINICAL INFORMATION: RLQ abd pain, recent post op for bladder prolapse. TECHNIQUE: Axial CT images were obtained through the abdomen and pelvis after IV contrast. All CT sc ans at this location are performed using CT dose reduction for ALARA by means of automated exposure c ontrol. COMPARISON: None available. FINDINGS: LOWER CHEST: No significant abnormality. LIVER: No significant abnormality. GALLBLADDER: No significant abnormality. BILE DUCTS: No significant abnormality. PANCREAS: No significant abnormality. SPLEEN: No significant abnormality. ADRENALS: No significant abnormality. RIGHT KIDNEY / URETER: No significant abnormality. LEFT KIDNEY / URETER: No significant abnormality. STOMACH / SMALL BOWEL: No significant abnormality. COLON: No significant abnormality. APPENDIX: No significant abnormality. PERITONEUM: No free fluid. No free air. No fluid collection. LYMPH NODES: No significant adenopathy. AORTA / ARTERIES: No significant abnormality. IVC / VEINS: No significant abnormality. URINARY BLADDER: No significant abnormality. REPRODUCTIVE ORGANS: No significant abnormality. ADDITIONAL FINDINGS: Sacral nerve root and dorsal column stimulators are demonstrated within the subc utaneous tissues of the lower back.. SKELETAL SYSTEM: No significant abnormality. IMPRESSION: Negative for acute abdominopelvic abnormality. Normal appendix. Signer Name: Robin Hsieh MD Signed: 12/12/2020 9:08 PM Workstation Name: [id number]
--- NOTE | 2020-12-12 21:52 | Emergency Department Report ---
ED Abdominal Pain HPI - General Chief Complaint: Abdominal Pain Stated Complaint: CRONIC PAIN Time Seen by Provider: 12/12/20 18:44 Source: patient, brusher hand (secretary vicky) Mode of arrival: Wheelchair Limitations: Physical Limitation - History of Present Illness Initial Comments: secretary Vicky used as division sergeant Patient is a 35-year-old female presents emergency room with complaints of right lower quadrant abdominal pain for a week and a half. Patient had surgery performed at [facility] 2 weeks ago. 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 She has associated nausea and vomiting. She states that she is also had constipation but is still able to pass gas. she has been taking morphine at home for her pain. She states that she has a follow-up appointment with her surgeon in 2 days. She reports that she had a fever yesterday but has had no fever today. She denies any diarrhea, urinary symptoms, vaginal bleeding, abnormal vaginal discharge, hematochezia, melena, hematemesis. Severity scale (0 -10): 6 - Related Data Previous Rx's Medication Instructions Recorded Last Taken Type AtorvaSTATin [Lipitor] 40 mg PO QHS #30 tablet 11/03/18 Unknown Rx Baclofen [Lioresal] 20 mg PO BID #60 tablet 11/03/18 Unknown Rx Butalb/Acetamin/Caff 50-325-40 1 tab PO Q6HR PRN #30 tab 11/03/18 Unknown Rx [Fioricet 50-325-40] Famotidine [Pepcid] 20 mg PO BID #60 tablet 11/03/18 Unknown Rx Gabapentin 800 mg PO TID #90 capsule 11/03/18 Unknown Rx SUMAtriptan SUCCINATE [Imitrex] 50 mg PO QDAY #9 tablet 11/03/18 Unknown Rx Topiramate [Topamax] 25 mg PO Q12H #60 tablet 11/03/18 Unknown Rx traZODone [Desyrel] 100 mg PO QHS #30 tablet 11/03/18 Unknown Rx Glycerin Adult 2 gm 2 gm CO DAILY PRN #10 supp.rect 12/12/20 Unknown Rx Ondansetron [Zofran Odt] 4 mg PO Q8HR PRN #10 tab.rapdis 12/12/20 Unknown Rx cephALEXin [Keflex] 500 mg PO BID 7 Days #14 capsule 12/12/20 Unknown Rx Allergies Allergy/AdvReac Type Severity Reaction Status Date / Time ciprofloxacin [From Cipro] Allergy Rash Verified 12/12/20 15:15 duloxetine [From Cymbalta] Allergy Rash Verified 12/12/20 15:15 metoclopramide [From Reglan] Allergy Rash Verified 12/12/20 15:15 prochlorperazine Allergy Rash Verified 12/12/20 15:15 [From Compazine] sulfamethoxazole Allergy Rash Verified 12/12/20 15:15 [From Septra] trimethoprim [From Septra] Allergy Rash Verified 12/12/20 15:15 ED Review of Systems ROS: Stated complaint: CRONIC PAIN Other details as noted in HPI Comment: All other systems reviewed and negative ED Past Medical Hx - Past Medical History Hx Congestive Heart Failure: No Hx Diabetes: No Hx GERD: Yes Hx Arthritis: Yes Hx Asthma: No Hx COPD: No Additional medical history: cuada equina syndrome. Chronic Pain syndrome. chronic muscle spams. neurogenic bladder. paraplegia. endometrosis. adhesi ons. herniated disc. PUD. Hernia. LT lef weakness-unable to walk. muscle deficiency - Surgical History Additional Surgical History: hysterectomy. left leg surgery. laminectomy. muscluar stimulator in back. back surgery. ectopic surgery. hernia. ear surgery - Social History Smoking Status: Never Smoker - Medications Home Medications: Home Medications Medication Instructions Recorded Confirmed Last Taken Type AtorvaSTATin [Lipitor] 40 mg PO QHS #30 tablet 11/03/18 Unknown Rx Baclofen [Lioresal] 20 mg PO BID #60 tablet 11/03/18 Unknown Rx Butalb/Acetamin/Caff 50-325-40 1 tab PO Q6HR PRN #30 tab 11/03/18 Unknown Rx [Fioricet 50-325-40] Famotidine [Pepcid] 20 mg PO BID #60 tablet 11/03/18 Unknown Rx Gabapentin 800 mg PO TID #90 capsule 11/03/18 Unknown Rx SUMAtriptan SUCCINATE [Imitrex] 50 mg PO QDAY #9 tablet 11/03/18 Unknown Rx Topiramate [Topamax] 25 mg PO Q12H #60 tablet 11/03/18 Unknown Rx traZODone [Desyrel] 100 mg PO QHS #30 tablet 11/03/18 Unknown Rx Glycerin Adult 2 gm 2 gm CO DAILY PRN #10 supp.rect 12/12/20 Unknown Rx Ondansetron [Zofran Odt] 4 mg PO Q8HR PRN #10 tab.rapdis 12/12/20 Unknown Rx cephALEXin [Keflex] 500 mg PO BID 7 Days #14 capsule 12/12/20 Unknown Rx ED Physical Exam - General Limitations: Physical Limitation General appearance: alert, in no apparent distress - Head Head exam: Present: atraumatic, normocephalic - Eye Eye exam: Present: normal appearance - ENT ENT exam: Present: mucous membranes moist - Respiratory Respiratory exam: Present: normal lung sounds bilaterally. Absent: respiratory distress, wheezes, rales, rhonchi, stridor, chest wall tenderness, accessory muscle use, decreased breath sounds, prolonged expiratory - Cardiovascular Cardiovascular Exam: Present: regular rate, normal rhythm, normal heart sounds. Absent: systolic murmur, diastolic murmur, rubs, gallop - GI/Abdominal GI/Abdominal exam: Present: soft, tenderness (RLQ), normal bowel sounds. Absent: distended, guarding, rebound, rigid - Neurological Exam Neurological exam: Present: alert, oriented X3 - Psychiatric Psychiatric exam: Present: normal affect, normal mood - Skin Skin exam: Present: warm, dry, intact ED Course Vital Signs 12/12/20 12/12/20 15:20 23:00 Temperature 97.6 F Pulse Rate 97 H 61 Respiratory 24 15 Rate Blood Pressure 140/84 Blood Pressure 127/74 [Right] O2 Sat by Pulse 96 99 Oximetry ED Medical Decision Making - Lab Data Result diagrams: 12/12/20 17:33 12/12/20 16:35 Lab Results 12/12/20 12/12/20 12/12/20 Range/Units 16:35 16:35 17:33 WBC 5.4 (4.5-11.0) K/mm3 RBC 5.07 H (3.65-5.03) M/mm3 Hgb 13.4 (10.1-14.3) gm/dl Hct 41.3 (30.3-42.9) % MCV 81 (79-97) fl MCH 26 L (28-32) pg MCHC 32 (30-34) % RDW 14.0 (13.2-15.2) % Plt Count 345 (140-440) K/mm3 Lymph % (Auto) 42.5 H (13.4-35.0) % Holmes % (Auto) 8.2 H (0.0-7.3) % Eos % (Auto) 1.9 (0.0-4.3) % Baso % (Auto) 1.0 (0.0-1.8) % Lymph # (Auto) 2.3 (1.2-5.4) K/mm3 Holmes # (Auto) 0.4 (0.0-0.8) K/mm3 Eos # (Auto) 0.1 (0.0-0.4) K/mm3 Baso # (Auto) 0.1 (0.0-0.1) K/mm3 Seg Neutrophils % 46.4 (40.0-70.0) % Seg Neutrophils # 2.5 (1.8-7.7) K/mm3 Sodium 142 (137-145) mmol/L Potassium 4.4 (3.6-5.0) mmol/L Chloride 106.1 (98-107) mmol/L Carbon Dioxide 26 (22-30) mmol/L Anion Gap 14 mmol/L BUN 14 (7-17) mg/dL Creatinine 0.6 (0.6-1.2) mg/dL Estimated GFR > 60 ml/min BUN/Creatinine Ratio 23 % Glucose 101 H (65-100) mg/dL Calcium 9.8 (8.4-10.2) mg/dL Total Bilirubin 0.30 (0.1-1.2) mg/dL Direct Bilirubin < 0.2 (0-0.2) mg/dL Indirect Bilirubin 0.1 mg/dL AST 17 (5-40) units/L ALT 13 (7-56) units/L Alkaline Phosphatase 84 (35-129) units/L Total Protein 7.3 (6.3-8.2) g/dL Albumin 4.4 (3.9-5) g/dL Albumin/Globulin Ratio 1.5 % Lipase 26 (13-60) units/L HCG, Qual Negative (Negative) Urine Color (Yellow) Urine Turbidity (Clear) Urine pH (5.0-7.0) Ur Specific [place] (1.003-1.030) Urine Protein (Negative) mg/dL Urine Glucose (UA) (Negative) mg/dL Urine Ketones (Negative) mg/dL Urine Blood (Negative) Urine Nitrite (Negative) Urine Bilirubin (Negative) Urine Urobilinogen (<2.0) mg/dL Ur Leukocyte Esterase (Negative) Urine WBC (Auto) (0.0-6.0) /HPF Urine RBC (Auto) (0.0-6.0) /HPF U Epithel Cells (Auto) (0-13.0) /HPF Urine Mucus /HPF 12/12/20 12/12/20 Range/Units 17:33 Unknown WBC (4.5-11.0) K/mm3 RBC (3.65-5.03) M/mm3 Hgb (10.1-14.3) gm/dl Hct (30.3-42.9) % MCV (79-97) fl MCH (28-32) pg MCHC (30-34) % RDW (13.2-15.2) % Plt Count (140-440) K/mm3 Lymph % (Auto) (13.4-35.0) % Holmes % (Auto) (0.0-7.3) % Eos % (Auto) (0.0-4.3) % Baso % (Auto) (0.0-1.8) % Lymph # (Auto) (1.2-5.4) K/mm3 Holmes # (Auto) (0.0-0.8) K/mm3 Eos # (Auto) (0.0-0.4) K/mm3 Baso # (Auto) (0.0-0.1) K/mm3 Seg Neutrophils % (40.0-70.0) % Seg Neutrophils # (1.8-7.7) K/mm3 Sodium (137-145) mmol/L Potassium (3.6-5.0) mmol/L Chloride (98-107) mmol/L Carbon Dioxide (22-30) mmol/L Anion Gap mmol/L BUN (7-17) mg/dL Creatinine (0.6-1.2) mg/dL Estimated GFR ml/min BUN/Creatinine Ratio % Glucose (65-100) mg/dL Calcium (8.4-10.2) mg/dL Total Bilirubin (0.1-1.2) mg/dL Direct Bilirubin (0-0.2) mg/dL Indirect Bilirubin mg/dL AST (5-40) units/L ALT (7-56) units/L Alkaline Phosphatase (35-129) units/L Total Protein (6.3-8.2) g/dL Albumin (3.9-5) g/dL Albumin/Globulin Ratio % Lipase (13-60) units/L HCG, Qual Negative (Negative) Urine Color Yellow (Yellow) Urine Turbidity Clear (Clear) Urine pH 5.0 (5.0-7.0) Ur Specific [place] 1.054 H (1.003-1.030) Urine Protein <15 mg/dl (Negative) mg/dL Urine Glucose (UA) Neg (Negative) mg/dL Urine Ketones Neg (Negative) mg/dL Urine Blood Neg (Negative) Urine Nitrite Neg (Negative) Urine Bilirubin Neg (Negative) Urine Urobilinogen < 2.0 (<2.0) mg/dL Ur Leukocyte Esterase Lg (Negative) Urine WBC (Auto) 12.0 H (0.0-6.0) /HPF Urine RBC (Auto) 4.0 (0.0-6.0) /HPF U Epithel Cells (Auto) 3.0 (0-13.0) /HPF Urine Mucus Few /HPF - Radiology Data Radiology results: report reviewed Ordering Physician: STEPHEN CHENEY Date of Service: 12/12/20 Procedure(s): XR chest routine 2V Accession Number(s): [id number] cc: STEPHEN CHENEY Fluoro Time In Minutes: . CHEST 2 VIEWS INDICATION / CLINICAL INFORMATION: Chest pain. COMPARISON: None available. FINDINGS: SUPPORT DEVICES: None. HEART / MEDIASTINUM: No significant abnormality. LUNGS / PLEURA: No significant pulmonary or pleural abnormality. No pneumothorax. ADDITIONAL FINDINGS: No significant additional findings. IMPRESSION: 1. No acute findings. Signer Name: Matheus Schilling MD Signed: 12/12/2020 5:30 PM Workstation Name: [id number] Transcribed By: MAGNOLIA Dictated By: Matheus Schilling MD Electronically Authenticated By: Matheus Schilling MD Signed Date/Time: 12/12/201729 DD/ 29 TD/TT: Print Ordering Physician: HARRIET BECKER Date of Service: 12/12/20 Procedure(s): CT abdomen pelvis w con Accession Number(s): [id number] cc: HARRIET BECKER CT ABDOMEN AND PELVIS WITH CONTRAST INDICATION / CLINICAL INFORMATION: RLQ abd pain, recent post op for bladder prolapse. TECHNIQUE: Axial CT images were obtained through the abdomen and pelvis after IV contrast. All CT scans at this location are performed using CT dose reduction for ALARA by means of automated exposure control. COMPARISON: None available. FINDINGS: LOWER CHEST: No significant abnormality. LIVER: No significant abnormality. GALLBLADDER: No significant abnormality. BILE DUCTS: No significant abnormality. PANCREAS: No significant abnormality. SPLEEN: No significant abnormality. ADRENALS: No significant abnormality. RIGHT KIDNEY / URETER: No significant abnormality. LEFT KIDNEY / URETER: No significant abnormality. STOMACH / SMALL BOWEL: No significant abnormality. COLON: No significant abnormality. APPENDIX: No significant abnormality. PERITONEUM: No free fluid. No free air. No fluid collection. LYMPH NODES: No significant adenopathy. AORTA / ARTERIES: No significant abnormality. IVC / VEINS: No significant abnormality. URINARY BLADDER: No significant abnormality. REPRODUCTIVE ORGANS: No significant abnormality. ADDITIONAL FINDINGS: Sacral nerve root and dorsal column stimulators are demonstrated within the subcutaneous tissues of the lower back.. SKELETAL SYSTEM: No significant abnormality. IMPRESSION: Negative for acute abdominopelvic abnormality. Normal appendix. Signer Name: Robin Hsieh MD Signed: 12/12/2020 9:08 PM Workstation Name: [id number] Transcribed By: SB Dictated By: ROBIN HSIEH MD Electronically Authenticated By: ROBIN HSIEH MD Signed Date/Time: 12/12/202107 DD/ 04 TD/TT: - Medical Decision Making Vicky, construction secretary used as division sergeant Patient is a 35-year-old female presents emergency room with complaints of right lower quadrant abdominal pain for a week and a half. Patient had surgery performed at [facility] 2 weeks ago. 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 She has associated nausea and vomiting. She states that she is also had constipation but is still able to pass gas. she has been taking morphine at home for her pain. She states that she has a follow-up appointment with her surgeon in 2 days. She reports that she had a fever yesterday but has had no fever today. She denies any diarrhea, urinary symptoms, vaginal bleeding, abnormal vaginal discharge, hematochezia, melena, hematemesis. Vitals are stable. On exam patient has right lower quadrant tenderness outpatient, no guarding, no rebound, no rigidity, no masses, no peritoneal signs, she has small healing incisions which are clean, dry, intact without any signs of infection or wound dehiscence. Orders placed prior to my examination. Labs are stable. UA shows evidence of UTI. Chest x-ray with no acute process. CT abdomen pelvis with IV contrast Negative for acute abdominopelvic abnormality. Normal appendix. Discussed all results with patient and answered questions. Patient given medications while in the emergency department with improvement of her symptoms. Please see Mecca CORDUROY CUTTING SUPERVISOR below, will not be prescribing any further narcotics at this time. advised pt Please take medication as prescribed. Follow-up with your primary care doctor. Follow-up with your surgeon and please keep your appointment for this 12/14/2020. Return to emergency room for any new or worse symptoms. 11/24/2020 3 11/24/2020 OXYCODONE-ACETAMINOPHEN 5-325 30.0 5 FE RHA [id number] [facility] ([id number]) 0 45.0 MME Medicaid ID 11/13/2020 2 11/05/2020 OXYCODONE-ACETAMINOPHN 7.5-325 60.0 30 ID ALL [id number] [facility] ([id number]) 0 22.5 MME Medicaid ID 11/13/2020 2 11/05/2020 MORPHINE SULF ER 30 MG TABLET 90.0 30 ID ALL [id number] [facility] ([id number]) 0 90.0 MME Medicaid ID 10/12/2020 2 10/04/2020 OXYCODONE-ACETAMINOPHN 7.5-325 60.0 30 ID ALL [id number] [facility] ([id number]) 0 22.5 [place]ME [place] 10/12/2020 2 10/04/2020 MORPHINE SULF ER 30 MG TABLET 90.0 30 ID ALL [id number] [facility] ([id number]) 0 90.0 MME Medicaid ID 09/11/2020 2 09/11/2020 OXYCODONE-ACETAMINOPHN 7.5-325 60.0 30 ID ALL [id number] [facility] ([id number]) 0 22.5 [place] 09/11/2020 2 09/11/2020 MORPHINE SULF ER 30 MG TABLET 90.0 30 ID ALL [id number] [facility] ([id number]) 0 90.0 [place] 08/14/2020 2 08/14/2020 OXYCODONE-ACETAMINOPHN 7.5-325 60.0 30 ID ALL [id number] [facility] ([id number]) 0 22.5 [place] 08/14/2020 2 08/14/2020 MORPHINE SULF ER 30 MG TABLET 90.0 30 ID ALL [id number] [facility] ([id number]) 0 90.0 [place] 07/10/2020 2 07/10/2020 OXYCODON-ACETAMINOPHEN 7.5-325 60.0 30 ID ALL [id number] [facility] ([id number]) 0 22.5 [place] 07/10/2020 2 07/10/2020 MORPHINE SULF ER 30 MG TABLET 90.0 30 ID ALL [id number] [facility] ([id number]) 0 90.0 [place] 06/12/2020 2 06/12/2020 MORPHINE SULF ER 30 MG TABLET 90.0 30 ID ALL [id number] [facility] ([id number]) 0 90.0 [place] 05/02/2020 2 05/02/2020 MORPHINE SULF ER 30 MG TABLET 90.0 30 ID ALL [id number] [facility] ([id number]) 0 90.0 [place] Critical care attestation.: If time is entered above; I have spent that time in minutes in the direct care of this critically ill patient, excluding procedure time. ED Disposition Clinical Impression: Abdominal pain Qualifiers: Abdominal location: right lower quadrant Qualified Code(s): R10.31 - Right lower quadrant pain UTI (urinary tract infection) Qualifiers: Urinary tract infection type: acute cystitis Hematuria presence: without hematuria Qualified Code(s): N30.00 - Acute cystitis without hematuria Disposition: TO HOME OR SELFCARE Is pt being admited?: No Does the pt Need Aspirin: No Condition: Stable Instructions: Abdominal Pain (ED) Additional Instructions: Please take medication as prescribed. Follow-up with your primary care doctor. Follow-up with your surgeon and please keep your appointment for this 12/14/2020. Return to emergency room for any new or worse symptoms. [place] la medicacin segn lo prescrito. Mely un seguimiento con rincon mdico de atencin primaria. Mely un seguimiento con rincon cirujano y asista a rincon corrie para kim viernes 6 de billy 2020. Regrese a la beth de emergencias por cualquier sntoma nuevo o peor. Prescriptions: Glycerin Adult 2 gm 2 gm CO DAILY PRN #10 supp.rect PRN Reason: constipation cephALEXin [Keflex] 500 mg PO BID 7 Days #14 capsule Ondansetron [Zofran Odt] 4 mg PO Q8HR PRN #10 tab.rapdis PRN Reason: vomiting Referrals: your, surgeon [Other] - 2-3 Days PRIMARY CARE,MD [Primary Care Provider] - 2-3 Days Time of Disposition: 22:07 Print Language: BELARUSIAN
[2020-12-12 22:05] LABS: Bilirubin,Urine NEG (Negative); Blood,Urine NEG (Negative); Color,Urine Yellow (Yellow); Mucus,Urine FEW /HPF; Protein,Urine <15 mg/dL mg/dL (Negative); Urobilinogen,Urine < 2.0 mg/dL (<2.0)
[2020-12-13 00:58] VITALS: BP 127/74
== END 2020-12-12 23:00 | disposition home or self-care (01) ==
LOC: ED 13:38
DX: N39.0 Urinary tract infection, site not specified (principal); R10.31 Right lower quadrant pain; K21.9 Gastro-esophageal reflux disease without esophagitis; M19.90 Unspecified osteoarthritis, unspecified site; Z88.8 Allergy status to other drugs, medicaments and biological substances; Z88.2 Allergy status to sulfonamides; Z79.899 Other long term (current) drug therapy
CPT/HCPCS: 36415; 71046; 74177; 80048; 80076; 81001; 83690; 84703; 85025; 87086; 96361; 96374; 96375; 96376; 99284; J2270; J2405; J7030; Q9967